=== PATIENT | female | born 1945 | race Caucasian/White ===

== ENCOUNTER → 2016-12-10 | Outpatient (CLI) | payer OTHER, BC ==
[~2016-12-10] VITALS: Ht 162.6 cm; Wt 93.4 kg
[~2016-12-10] MED LIST: ADVAIR 500-501 EACH INH; ALENDRONATE SOD70 MG PO; ALTACE10 MG PO; CALCIUM 500 +1 EAC5 PO; CLOBETASOL EMOL15 GM TP; COUMADIN 5 MG TA5 M1 PO; DOFETILIDE125 MCG PO; DUONEB 2.5-0.5 M3 ML INH; ESCITALOPRAM OXA5 MG PO; FISH OIL 1,001000 M2 PO; GENTEAL MILD25 ML OP; LASIX 20 MG TAB20 MG PO; LORATIDINE 10 M10 M1 PO; MOMETASONE FURO17 GM NASAL; MUCINEX TA600 MG/TA2 PO; OXYGEN MISCELL; PREDNISONE 10 M10 MG; PROAIR RESPICL90 MCG INH; SINGULAIR 10 MG10 M1 PO; VITAMIN D1000 UNI1 PO; ZYPREXA ZYDIS5 MG PO
--- NOTE | ~2016-12-10 | CATHLAB ---
[facility] [employer] [place] [address] INVASIVE PROCEDURE REPORT Name: JOANIE CONNELLY Room #: REG [facility]#: [id number] Admission: 12/10/16 Attend Phys: Marlon Montelongo MD Discharge: Date of : 41 Date of Service: 12/10/16 1530 Report #: [id number] THIS REPORT FOR: //name// CC: Marlon MARIE DATE OF SERVICE: 12/10/2016 INDICATION: Chest pain, abnormal nuclear stress test. Full risks, benefits and alternatives of cardiac catheterization were explained to the patient. All questions were answered. Informed consent was obtained. The right groin area was prepped and draped in a sterile manner. Lidocaine was given subcutaneously. A 4[place] sheath was inserted into the right femoral artery via modified Seldinger technique. CORONARY ANATOMY: 1. The left main artery is a large caliber vessel, with no flow-limiting lesions. 2. The LAD is a moderate sized caliber vessel, traveling down the anterior wall and wrapping around the apex. There were no flow-limiting lesions in the LAD. In the proximal segment, there is minimal disease noted. 3. There is a moderate sized first diagonal artery, with no flow-limiting lesions. 4. The left circumflex artery is a moderate sized caliber vessel, supplying several obtuse marginal arteries. There is minimal disease noted within the mid segment of the left circumflex artery. 5. The RCA is a moderate sized caliber vessel, dominant, as it supplies a PDA and posterolateral branch. There is mild disease in the proximal segment of the RCA, less than 20%. A left ventriculogram was performed revealing normal LV systolic function, ejection fraction of 60%. The LVEDP is 22 mmHg. There was no gradient across the outflow tract. IMPRESSION: 1. 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 2. Normal left ventricular systolic function. 3. Recommend medical therapy. <ELECTRONICALLY SIGNED> By: Marlon Montelongo MD 12/11/16 0008 [id number] Marlon Montelongo MD /nt
[2016-12-10 11:00] VITALS: BP 121/69
[2016-12-10 11:36] LABS: HEMATOCRIT 37.5 % (37.0-47.0); HEMOGLOBIN 12.6 gm/dL (12.0-15.0); MCH 30.7 pg (26.0-34.0); MCHC 33.5 g/dL (28.0-37.0); MCV 91.8 fL (80.0-100.0); RBC 4.09 mil/uL (4.20-5.00); RDW 14.6 % (10.5-14.5); WBC 6.8 thou/uL (4.0-11.0)
[2016-12-10 11:42] LABS: CALCIUM 8.8 mg/dL (8.5-10.1); POTASSIUM 3.9 mmol/L (3.5-5.1)
[2016-12-10 11:48] LABS: INR 1.1; PROTIME 11.6 Seconds (9.3-11.4)
== END ==
LOC: CATH 10:41
PROVIDERS: Internal Medicine Cardiovascular Disease
DX: I48.91 Unspecified atrial fibrillation (principal); I20.8 Other forms of angina pectoris; I10 Essential (primary) hypertension; J44.9 Chronic obstructive pulmonary disease, unspecified; E78.00 Pure hypercholesterolemia, unspecified; G47.30 Sleep apnea, unspecified; F41.9 Anxiety disorder, unspecified; M19.90 Unspecified osteoarthritis, unspecified site; Z87.891 Personal history of nicotine dependence

== ENCOUNTER → 2018-01-09 | Outpatient (CLI) | payer OTHER, BC ==
--- NOTE | ~2018-01-09 | 2DMMODE ---
[facility] [place] [address] 2 D/M-MODE ECHOCARDIOGRAM Name: JOANIE CONNELLY Room #: REG [facility]#: [id number] Admission: 01/09/18 Attend Phys: Navneet Greenwood Discharge: Date of : 41 Date of Service: 01/09/18 1156 Report #: [id number] THIS REPORT FOR: //name// APPROVED REPORT Study performed: 01/09/2018 09:59:13 EXAM: Comprehensive 2D, Doppler, and color-flow Echocardiogram Patient Location: Out-Patient Status: routine BSA: 1.91 HR: 69 bpm BP: 133/71 mmHg Rhythm: Atrial Fibrillation Other Information Study Quality: Adequate Indications Atrial Fibrillation Hx: HTN, Pacemaker 2D Dimensions RVDd: 33.23 mm LVEF(%): 56.31 (>50%) IVSd: 11.32 (7-11mm) LVOT Diam: 19.52 (18-24mm) LVDd: 47.17 mm PWd: 10.51 (7-11mm) Ascending Ao: 31.83 (22-36mm) LVDs: 33.29 (25-40mm) Aortic Root: 33.48 mm IVC: 25.00 mm Razo's LVEF: 56.31 % Volumes Left Atrial Volume (Systole) Single Plane 4CH: 77.85 mL Single Plane 2CH: 57.56 mL LA ESV Index: 37.00 mL/m2 Aortic Valve AoV Peak Juan C.: 2.24 m/s AO Peak Gr.: 20.08 mmHg LVOT Max P.81 mmHg AO Mean Gr.: 9.71 mmHg AO V2 Mean: 1.43 m/s LVOT Max V: 0.67 m/s AO V2 VTI: 47.29 cm MAYRA Vmax: 0.[address] [facility] [place] [address] 2 D/M-MODE ECHOCARDIOGRAM Name: JOANIE CONNELLY [id number] Admission: 01/09/18 Attend Phys: Navneet Greenwood Discharge: Date of : 41 Date of Service: 01/09/18 1156 Report #: [id number] Mitral Valve MV Decel. Time: 142.86 ms MV E Max Juan C.: 1.17 m/s Pulmonary Valve PV Peak Juan C.: 0.82 m/s PV Peak Gr.: 2.69 mmHg Pulmonary Vein P Vein S: 0.41 m/s P Vein A: 0.32 m/s P Vein D: 0.66 m/s P Vein A Dur.: 106.1 msec P Vein S/D Ratio: 0.62 Tricuspid Valve TR Peak Juan C.: 2.78 m/s RAP Estimate: 10.00 mmHg TR Peak Gr.: 30.92 mmHg PA Pressure: 41.00 mmHg Left Ventricle The left ventricle is normal size. There is normal LV segmental wall motion. There is normal left ventricular wall thickness. The left ventricular systolic function is normal. LVEF is 55-60%. This study is not technically sufficient to allow evaluation of the LV diastolic function due to atrial fibrillation. Right Ventricle The right ventricle is normal size. The right ventricular systolic function is normal. Pacemaker lead is present in the right ventricle. Atria Left atrium is dilated. Right atrium is dilated. Pacemaker lead is present in the right atrium. Aortic Valve Aortic valve leaflets are moderately thickened and calcified. No aortic regurgitation is present. There is mild to moderate valvular aortic stenosis. Maximum pressure gradient of 20.1 mmHg and mean pressure gradient of 9.7 mmHg. Mitral Valve Mitral valve leaflets are mildly thickened. Mild-moderate mitral regurgitation. No evidence of mitral valve stenosis. Tricuspid Valve The tricuspid valve is normal in structure. Mild to moderate tricuspid regurgitation. Estimated PAP [address] [facility] [address] [place] [id number] 2 D/M-MODE ECHOCARDIOGRAM Name: JOANIE CONNELLY Room #: [facility]#: [id number] Admission: 01/09/18 Attend Phys: Navneet Greenwood Discharge: Date of : 41 Date of Service: 01/09/18 1156 Report #: [id number] Pulmonic Valve The pulmonary valve is normal in structure. Trace pulmonic regurgitation. Great Vessels The aortic root is normal in size. The ascending aorta is normal in size. IVC is dilated and collapses 50% with inspiration. Pericardium There is no pericardial effusion. <Conclusion> The left ventricular systolic function is normal. There is normal LV segmental wall motion. LVEF 55-60%. Both atria are dilated Pacemaker lead is present in the right atrium. Aortic valve leaflets are moderately thickened and calcified. No aortic regurgitation. Mild to moderate valvular aortic stenosis. Maximum pressure gradient of 20.1 mmHg and mean pressure gradient of 9.7 mmHg. Mitral valve leaflets are mildly thickened. Mild-moderate mitral regurgitation. Mild to moderate tricuspid regurgitation. Estimated pulmonary artery pressure of 40 mmHg. There is no pericardial effusion. <ELECTRONICALLY SIGNED> By: Francois Campuzano MD, FACC 01/09/18 1156 1156 1156 Francois Campuzano MD, FACC /INF
== END ==
LOC: CV 07:30
DX: I08.1 Rheumatic disorders of both mitral and tricuspid valves (principal); I70.0 Atherosclerosis of aorta; Z95.0 Presence of cardiac pacemaker; I10 Essential (primary) hypertension